=== PATIENT | male | born 1980 | race Two or more races ===

== ENCOUNTER 2021-05-31 14:44 | Outpatient (REF) | payer OTHER, SELFPAY | END 2021-05-31 14:45 | disposition home or self-care (01) | LOC: HO.LAB 14:44 | PROVIDERS: Visit Provider Internal Medicine | DX: Z20.822 Contact with and (suspected) exposure to COVID-19 (principal) | CPT/HCPCS: C9803; U0003; U0005 ==

== ENCOUNTER 2021-12-23 21:12 | Emergency (ER) | payer OTHER, SELFPAY ==
[2021-12-23 21:22] VITALS: BP 121/80; PULSE 68; RESP 18; TEMP 36.2; O2SAT 98; BMI 28.8
--- NOTE | 2021-12-23 22:11 | ED_ITS ---
HPI - General Adult General Chief complaint: Extremity Injury, Lower Stated complaint: Tick bite Time Seen by Provider: 12/23/21 22:08 Source: patient Mode of arrival: ambulatory Limitations: no limitations History of Present Illness HPI narrative: Patient comes to the emergency room complaining of a tick bite to the left forearm. Patient states that a few hours prior to arrival, patient noticed a tick on his upper arm. Patient was able to pull it out. Patient denies fever chills, complaining of localized mild discomfort, no rash or erythema. Related Data Allergies Allergy/AdvReac Type Severity Reaction Status Date / Time No Known Allergies Allergy Unverified 05/21/20 16:47 Review of Systems 2 Review of Systems: Constitutional : No Weight loss, No Fever, No Chills, No Night Sweats, No Fatigue, No Malaise ENT/Mouth : No Hearing loss, No Ear Pain, No Nasal Congestion, No Sinus Pain, No Hoarseness, No sore throat, No Rhinorrhea, No Swallowing Difficulty Eyes: No Eye Pain, No Swelling, No Redness, No Foreign Body, No Discharge, No Vision Changes Cardiovascular : No Chest Pain, No SOB, No Dyspnea on Exertion, No Orthopnea, No Edema, No Palpitations Respiratory : No Cough, No Sputum, No Wheezing, No Smoke Exposure, No Dyspnea Gastrointestinal : No Nausea, No Vomiting, No Diarrhea, No Constipation, No abdominal Pain, No Hematochezia, No Melena Genitourinary : no irregular bleeding, No Dysuria, No Urinary Frequency, No Hematuria, No Urinary Incontinence, No Urgency, No Flank Pain, No Urinary Flow Changes, No Hesitancy Musculoskeletal : No joint pain, No Myalgias, No Joint Swelling Skin : Complaining of seeing tick attached to his left upper arm Neuro : No Weakness, No Numbness, No Paresthesias, No Loss of Consciousness, No Dizziness, No Headache Psych : No Anxiety/Panic, No Depression, No SI/HI/AH/VH, No Social Issues, Heme/Lymph: No Bruising, No Bleeding,No Lymphadenopathy Endocrine : No Polyuria, No Polydipsia, No Temperature Intolerance FOR[facility] Social History Social History Advance Directives: No Advance Directives Information Provided: No Physical Exam ED Vital Signs: Vital Signs - 24 hr 12/23/21 21:22 Temperature 97.2 F Pulse Rate 68 Respiratory Rate 18 Blood Pressure 121/80 Pulse Oximetry 98 BMI result Body Mass Index 28.8 Const Other: Appearance: Alert. Oriented X3. No acute distress. Eyes: Pupils equal, round and reactive to light. ENT: Pharynx normal. Neck: Normal inspection. Neck supple. No lymph nodes noted. No crepitus CVS: Normal heart rate and rhythm. Pulses normal. Normal S1 and S2 Respiratory: No respiratory distress. Breath sounds normal. No Wheezing. No rales Abdomen: Soft and nontender. No rigidity. No distention. Skin: Skin warm and dry. Normal skin color. Normal skin turgor. No black [place]/lesions seen, seems that the tick was successfully removed Extremities: No lower extremity edema. No Lacerations. No Rash Neuro: Oriented X 3. No motor deficit. No sensory deficit. Moving all extremities. No slurred speech. CN 2 through 12 grossly intact Psych: calm, cooperative, normal affect Course Course Course Narrative: Patient received 1 dose of p.o. doxycycline 200 mg. Discharge Plan Discharge Clinical Impression: Tick bite Patient Disposition: Home, Self-Care Instructions: Tick Bite (ED) Additional Instructions: Please follow-up with your primary care physician tomorrow. If you have any worsening or new symptoms, please return to the emergency room or call [phone]
== END 2021-12-23 22:23 | disposition home or self-care (01) ==
PROVIDERS: Emergency Provider Emergency Medicine
DX: T63.481A Toxic effect of venom of other arthropod, accidental (unintentional), initial encounter (principal); Y92.9 Unspecified place or not applicable
CPT/HCPCS: 99283

== ENCOUNTER 2024-05-06 13:52 | Outpatient (REF) | payer OTHER, SELFPAY ==
--- NOTE | ~2024-05-06 | MR_ITS ---
MRI OF THE LUMBAR SPINE WITHOUT CONTRAST CLINICAL INFORMATION: LBP W/ RIGHT SIDED SCIATICA. COMPARISON: Lumbar spine radiographs September 01, 2013. TECHNIQUE: Multiplanar multisequence MR imaging of the lumbar spine obtained without contrast. FINDINGS: Chronic bilateral L5 pars defects associated with grade 1 spondylolytic anterolisthesis of L5 on S1. Lumbar alignment is otherwise maintained. There is mild disc volume loss and there is disc desiccation at L1-L2 and L5-S1. There is no bone marrow edema. There are no acute fractures. Vertebral body heights are maintained. Anterior endplate osteophytes at L1-L2. The conus terminates at the L1 level. There are no significant extra spinal soft tissue findings. L1-L2: Slight annular disc bulge exhibiting a dorsal annular fissure. No central canal stenosis. No foraminal stenosis. L2-L3: Diffuse annular disc bulge with a superimposed shallow right paracentral disc protrusion resulting in slight posterior deflection of the traversing right L3 nerve root within the right subarticular zone. Mild narrowing of the central canal. No foraminal stenosis. L3-L4: Slight annular disc bulge and mild bilateral facet arthropathy. No central canal stenosis and no foraminal stenosis. L4-L5: Diffuse annular disc bulge with a superimposed shallow right paracentral disc protrusion associated with an annular fissure. There is no central canal stenosis. A 6 mm synovial cyst along the anterior margin of the left facet joint contacts and results in mild mass effect on the foraminal segment of the exiting left L4 nerve root. L5-S1: There is grade 1 spondylolytic anterolisthesis in the setting of chronic bilateral L5 pars defects. Left lateral disc osteophyte results in mild left-sided foraminal encroachment without exiting nerve root compression. MR/MR lumbar spine wo con IMPRESSION: * At L5-S1, there is grade 1 spondylolytic anterolisthesis in the setting of chronic bilateral L5 pars defects. A left lateral disc osteophyte at this level results in mild left-sided foraminal encroachment without exiting nerve root compression. * At L4-L5, there is a 6 mm synovial cyst along the anterior margin of the left facet joint that contacts and results in mild mass effect on the foraminal segment of the exiting left L4 nerve root. Small shallow right paracentral disc protrusion at this level associated with an annular fissure minimally indents the ventral thecal sac. * At L2-L3, a shallow right paracentral disc protrusion results in mild posterior deflection of the traversing right L3 nerve root within the right subarticular zone. Electronically signed by: Rajeev Cervantes MD 05/06/2024 02:42 PM EDT RP
== END 2024-05-06 13:53 | disposition home or self-care (01) ==
LOC: HO.MRI 13:52
PROVIDERS: PCP Nurse Practitioner Community Health; Visit Provider Nurse Practitioner Community Health
DX: M54.41 Lumbago with sciatica, right side (principal)
CPT/HCPCS: 72148

== ENCOUNTER 2024-07-11 14:00 | Outpatient (RCR) | payer OTHER, SELFPAY | END 2024-08-07 09:49 | disposition home or self-care (01) | LOC: HO.PTCHIC 14:00 | PROVIDERS: PCP Nurse Practitioner Community Health; Visit Provider Nurse Practitioner Community Health | DX: M54.41 Lumbago with sciatica, right side (principal) | CPT/HCPCS: 97014; 97110; 97140; 97162 ==